=== PATIENT | female | born 1975 | race Hispanic/Latino ===

== ENCOUNTER → 2024-05-07 | Outpatient (REF) | payer OTHER | LOC: RAD 07:18 | PROVIDERS: ATTEND Family Medicine | DX: R31.9 Hematuria, unspecified (principal); M54.50 Low back pain, unspecified | CPT/HCPCS: 72110 ==

== ENCOUNTER → 2024-05-12 | Outpatient (REF) | payer OTHER | LOC: US 15:49 | PROVIDERS: ATTEND Family Medicine | DX: R31.9 Hematuria, unspecified (principal); M54.50 Low back pain, unspecified | CPT/HCPCS: 76770; 76857 ==